=== PATIENT | male | born 1990 | race Caucasian/White ===

== ENCOUNTER 2018-01-12 16:19 | Emergency (ER) | payer OTHER ==
[2018-01-12 16:39] VITALS: BP 139/71; PULSE 97; RESP 18; TEMP 98.7
--- NOTE | 2018-01-12 16:46 | ED ---
Lower Extremity Injury HPI - General Chief Complaint: Extremity Injury, Lower Stated Complaint: lt foot pain Time Seen by Provider: 01/12/18 16:33 Source: patient, RN notes reviewed Mode of arrival: ambulatory Limitations: no limitations - History of Present Illness Initial Comments: This is a 27-year-old male presents emergency Department chief complaint of left foot issues. 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 Patient states his surgery was over 12 years ago by a physician in [place]. Patient states recently he's noticed some swelling and opening where he believes one of the screws are. Patient states it is sensitive when he pressed over the area she's had no fever no chills - Related Data Home Medications Medication Instructions Recorded Confirmed No Known Home Medications [No 02/19/16 01/12/18 Known Home Medications] Allergies Allergy/AdvReac Type Severity Reaction Status Date / Time No Known Allergies Allergy Unverified 01/12/18 17:08 Review of Systems ROS Statement: Those systems with pertinent positive or pertinent negative responses have been documented in the HPI. ROS Other: All systems not noted in ROS Statement are negative. Past Medical History Past Medical History: No Reported History History of Any Multi-Drug Resistant Organisms: None Reported Past Surgical History: Orthopedic Surgery Additional Past Surgical History / Comment(s): feet surgery Past Psychological History: No Psychological Hx Reported Smoking Status: Current every day smoker Past Alcohol Use History: Occasional Past Drug Use History: None Reported General Exam Limitations: no limitations General appearance: alert, in no apparent distress Head exam: Present: atraumatic, normocephalic, normal inspection Respiratory exam: Present: normal lung sounds bilaterally. Absent: respiratory distress, wheezes, rales, rhonchi, stridor Cardiovascular Exam: Present: regular rate, normal rhythm, normal heart sounds. Absent: systolic murmur, diastolic murmur, rubs, gallop, clicks Extremities exam: Present: other (Left foot to old scars noted there is 0.5 cm circular region that has a scab noted over mild erythema mild tenderness with palpation the foot is neurovascularly intact) Skin exam: Present: warm, dry Course Vital Signs 01/12/18 16:37 Temperature 98.7 F Pulse Rate 97 Respiratory 18 Rate Blood Pressure 139/71 O2 Sat by Pulse 97 Oximetry Medical Decision Making - Medical Decision Making 27-year-old male presents from his for issues with his screw in his foot. X- ray shows fracture of his hardware. The screws tenting the skin. Patient will follow-up with orthopedics Dr. Burks for further evaluation. Disposition Clinical Impression: Fixation hardware in foot, Failed hardware, Foot pain, left Disposition: HOME SELF-CARE Condition: Stable Instructions: Arthralgia (ED) Additional Instructions: Please return to the Emergency Department if symptoms worsen or any other concerns. Is patient prescribed a controlled substance at d/c from ED?: No Referrals: None,Stated [Primary Care Provider] - 1-2 days Ander Burks MD [Medical Doctor] - 1-2 days
--- NOTE | 2018-01-12 16:58 | XR ---
EXAMINATION TYPE: XR foot complete LT DATE OF EXAM: 01/12/2018 COMPARISON: 03/21/2015 HISTORY: Foot pain TECHNIQUE: 3 views FINDINGS: There are plates and screws fusing the mid foot. There are 2 screws fixing osteotomy of the posterior calcaneus. I see no fracture nor dislocation. There are no erosions. There is a movement o f a medial screw that is now has head near the skin surface. There is fracture of also a second media l screw. IMPRESSION: Previous surgery. Fracture of one of the fusion screws. One screw is near the skin surfac e consistent with instability and movement. This is similar to old exam.
== END 2018-01-12 17:22 | disposition home or self-care (01) ==
LOC: EC 16:19
DX: T84.84XA Pain due to internal orthopedic prosthetic devices, implants and grafts, initial encounter (principal); M79.672 Pain in left foot; F17.200 Nicotine dependence, unspecified, uncomplicated
CPT/HCPCS: 99283

== ENCOUNTER 2019-01-23 09:19 | Emergency (ER) | payer OTHER ==
[2019-01-23 09:26] VITALS: BP 125/81; PULSE 83; RESP 18; TEMP 98.5
[2019-01-23] MEDS ORDERED: ACET/COD 300 MG/30 MG STARTER PACK 6 TAB BTL PO STA (10:06)
--- NOTE | 2019-01-23 10:06 | ED ---
ENT HPI - General Chief complaint: Dental/Oral Stated complaint: Dental Time Seen by Provider: 01/23/19 09:39 Source: patient, RN notes reviewed Mode of arrival: ambulatory Limitations: no limitations - History of Present Illness Initial comments: 28-year-old male presents emergency Department chief complaint of right lower dental pain. Patient states she's had increasing pain last couple days. No fevers or chills. Patient does report pain along his right jawline. Patient has not taken any medicines currently he did try some aspirin last night has NO KNOWN DRUG ALLERGIES. Has no current dentist. - Related Data Previous Rx's Medication Instructions Recorded Ibuprofen [Motrin] 600 mg PO Q8HR PRN #30 tab 01/23/19 Penicillin V Potassium [Pen Vee K] 500 mg PO QID #40 tablet 01/23/19 Allergies Allergy/AdvReac Type Severity Reaction Status Date / Time No Known Allergies Allergy Verified 01/23/19 09:39 Review of Systems ROS Statement: Those systems with pertinent positive or pertinent negative responses have been documented in the HPI. ROS Other: All systems not noted in ROS Statement are negative. Past Medical History Past Medical History: No Reported History History of Any Multi-Drug Resistant Organisms: None Reported Past Surgical History: Orthopedic Surgery Additional Past Surgical History / Comment(s): feet surgery Past Psychological History: No Psychological Hx Reported Smoking Status: Current every day smoker Past Alcohol Use History: Occasional Past Drug Use History: Marijuana General Exam Limitations: no limitations General appearance: alert, in no apparent distress Head exam: Present: atraumatic, normocephalic, normal inspection Eye exam: Present: normal appearance, PERRL, EOMI. Absent: scleral icterus, conjunctival injection, periorbital swelling ENT exam: Present: mucous membranes moist, TM's normal bilaterally, normal external ear exam, other (No trismus). Absent: normal oropharynx (Dental fracture, dental Neli right lower no 32) Neck exam: Present: normal inspection, full ROM. Absent: tenderness, meningismus, lymphadenopathy Respiratory exam: Present: normal lung sounds bilaterally. Absent: respiratory distress, wheezes, rales, rhonchi, stridor Cardiovascular Exam: Present: regular rate, normal rhythm, normal heart sounds. Absent: systolic murmur, diastolic murmur, rubs, gallop, clicks Course Vital Signs 01/23/19 09:24 Temperature 98.5 F Pulse Rate 83 Respiratory 18 Rate Blood Pressure 125/81 O2 Sat by Pulse 96 Oximetry Medical Decision Making - Medical Decision Making 28-year-old male presented for dental pain. Patient has noted dental fracture, no drainable abscess concern for underlying dental infection will be placed on Pen-Vee K, ibuprofen and given last Tylenol codeine starter pack. Disposition Clinical Impression: Impacted molar, Fracture of tooth, Dental caries Disposition: HOME SELF-CARE Condition: Stable Instructions (If sedation given, give patient instructions): Toothache (ED) Additional Instructions: Please return to the Emergency Department if symptoms worsen or any other concerns. Please follow up with the [facility]. [facility] [place] [address]. Phone number for new patients or [phone] for existing patients. Prescriptions: Ibuprofen [Motrin] 600 mg PO Q8HR PRN #30 tab PRN Reason: Pain Penicillin V Potassium [Pen Vee K] 500 mg PO QID #40 tablet Is patient prescribed a controlled substance at d/c from ED?: No Referrals: None,Stated [Primary Care Provider] - 1-2 days Time of Disposition: 10:06
== END 2019-01-23 10:21 | disposition home or self-care (01) ==
LOC: EC 09:19
DX: K02.9 Dental caries, unspecified (principal); K01.1 Impacted teeth; S02.5XXA Fracture of tooth (traumatic), initial encounter for closed fracture; F17.200 Nicotine dependence, unspecified, uncomplicated
CPT/HCPCS: 99282

== ENCOUNTER 2019-07-08 10:37 | Emergency (ER) | payer OTHER ==
[2019-07-08 10:46] VITALS: RESP 17
--- NOTE | 2019-07-08 11:14 | ED ---
Extremity Problem HPI - General Chief complaint: Extremity Problem,Nontraumatic Stated complaint: Wound on foot Time Seen by Provider: 07/08/19 10:51 Source: patient, RN notes reviewed, old records reviewed Mode of arrival: ambulatory Limitations: no limitations - History of Present Illness Initial comments: This patient's a pleasant 29-year-old male. 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 He had corrective surgery in 2004 and 2005 respectively. Patient reports that over the past 4 days after starting a new job read on his feet he's noticed some increased redness and pain over the mid left foot. He reports that he is noticed some erythema, drainage from where he believes that he has 2 screws from his corrective surgery. He feels that the screws are very close to the surface of the skin and her concern that they will pop out. Patient states that he has had no specific fevers or chills. He denies any other complaints at this time. - Related Data Previous Rx's Medication Instructions Recorded Ibuprofen [Motrin] 600 mg PO Q8HR PRN #30 tab 01/23/19 Penicillin V Potassium [Pen Vee K] 500 mg PO QID #40 tablet 01/23/19 Cephalexin [Keflex] 500 mg PO Q6H #40 cap 07/08/19 Sulfamethox-Tmp 800-160Mg [Bactrim 2 tab PO Q12HR #40 tab 07/08/19 DS 800-160 mg] Allergies Allergy/AdvReac Type Severity Reaction Status Date / Time No Known Allergies Allergy Verified 01/23/19 09:39 Review of Systems ROS Statement: Those systems with pertinent positive or pertinent negative responses have been documented in the HPI. ROS Other: All systems not noted in ROS Statement are negative. Past Medical History Past Medical History: No Reported History History of Any Multi-Drug Resistant Organisms: None Reported Past Surgical History: Orthopedic Surgery Additional Past Surgical History / Comment(s): feet surgery Past Psychological History: No Psychological Hx Reported Smoking Status: Current every day smoker Past Alcohol Use History: Occasional Past Drug Use History: Marijuana General Exam - General Exam Comments Initial Comments: 29-year-old male. Alert and oriented. Limitations: no limitations General appearance: alert, in no apparent distress Head exam: Present: atraumatic, normocephalic, normal inspection Eye exam: Present: normal appearance, PERRL, EOMI. Absent: scleral icterus, conjunctival injection, periorbital swelling ENT exam: Present: normal exam, mucous membranes moist Neck exam: Present: normal inspection. Absent: tenderness, meningismus, lymphadenopathy Respiratory exam: Present: normal lung sounds bilaterally. Absent: respiratory distress, wheezes, rales, rhonchi, stridor Cardiovascular Exam: Present: regular rate, normal rhythm, normal heart sounds. Absent: systolic murmur, diastolic murmur, rubs, gallop, clicks GI/Abdominal exam: Present: soft, normal bowel sounds. Absent: distended, tenderness, guarding, rebound, rigid Extremities exam: Present: normal inspection, full ROM, normal capillary refill. Absent: tenderness, pedal edema, joint swelling, calf tenderness Left Knee exam: Present: normal inspection, full ROM Lower Leg exam: Present: normal inspection, full ROM Ankle exam: Present: normal inspection, full ROM Foot/Toe exam: Present: tenderness, swelling (Patient has had a swelling, erythema over the left mid foot. There is to areas which appear to be 1 cm blisters. They're firm, concern for hardware close to coming through the skin.), erythema. Absent: normal inspection Neurovascular tendon exam: Present: no vascular compromise Gait: observed and normal Back exam: Present: normal inspection Neurological exam: Present: alert, oriented X3, CN II-XII intact Psychiatric exam: Present: normal affect, normal mood Skin exam: Present: warm, dry, intact, normal color. Absent: rash Course Vital Signs 07/08/19 10:44 Temperature 97.9 F Pulse Rate 62 Respiratory 17 Rate Blood Pressure 125/60 O2 Sat by Pulse 98 Oximetry Medical Decision Making - Medical Decision Making Patient is a 29-year-old male with history of congenital heart abnormality, he had surgery 2004. Lopressor days after getting a new job is walking and having rubbing of his boot over the medial aspect of his foot. He is found to have erythematous and swelling over the midfoot. X-rays completed does show some worsening of the broken hardware within the place. There was some minor drainage and wound culture was completed. Patient was given 2 g of IV Kefzol. We discussed the concern for fracture hardware no open skin could lead to osteomyelitis. We discussed admission with the Patient. He states referred to follow up out patiently and try a course of oral antibiotics. Discussed that person Patient is to rest ice and elevate the foot and to limit any weightbearing activity. Given a note for work. Patient started Keflex and Bactrim. Discussed strict return parameters. Patient reports that he was previously. Follow-up with Dr. Burks limbus screws removed however was unable to due to lack of insurance. Discussed the importance of following up with Dr. Burks in the strict return parameters of the area of redness worsens or swelling or drainage worsens to return probably. - Lab Data Result diagrams: 07/08/19 11:40 07/08/19 11:40 Lab Results 07/08/19 07/08/19 07/08/19 Range/Units 11:40 11:40 11:40 WBC 5.9 (3.8-10.6) k/uL RBC 5.55 (4.30-5.90) m/uL Hgb 16.0 (13.0-17.5) gm/dL Hct 47.1 (39.0-53.0) % MCV 84.9 (80.0-100.0) fL MCH 28.9 (25.0-35.0) pg MCHC 34.0 (31.0-37.0) g/dL RDW 12.7 (11.5-15.5) % Plt Count 205 (150-450) k/uL Neutrophils % 61 % Lymphocytes % 27 % Monocytes % 7 % Eosinophils % 3 % Basophils % 0 % Neutrophils # 3.6 (1.3-7.7) k/uL Lymphocytes # 1.6 (1.0-4.8) k/uL Monocytes # 0.4 (0-1.0) k/uL Eosinophils # 0.2 (0-0.7) k/uL Basophils # 0.0 (0-0.2) k/uL Sodium 141 (137-145) mmol/L Potassium 4.2 (3.5-5.1) mmol/L Chloride 110 H (98-107) mmol/L Carbon Dioxide 23 (22-30) mmol/L Anion Gap 8 mmol/L BUN 16 (9-20) mg/dL Creatinine 0.58 L (0.66-1.25) mg/dL Est GFR (CKD-EPI)AfAm >90 (>60 ml/min/1.73 sqM) Est GFR (CKD-EPI)NonAf >90 (>60 ml/min/1.73 sqM) Glucose 91 (74-99) mg/dL Plasma Lactic Acid Aiden 0.6 L (0.7-2.0) mmol/L Calcium 9.1 (8.4-10.2) mg/dL Total Bilirubin 1.0 (0.2-1.3) mg/dL AST 86 H (17-59) U/L ALT 76 H (21-72) U/L Alkaline Phosphatase 49 (38-126) U/L C-Reactive Protein <5.0 (<10.0) mg/L Total Protein 7.1 (6.3-8.2) g/dL Albumin 4.2 (3.5-5.0) g/dL - Radiology Data Radiology results: report reviewed Testes and medial section plate no longer putting the first cuneiform. Mild soft tissue swelling over the medial foot. No current sequelae of osteomyelitis. Disposition Clinical Impression: Cellulitis of foot, Fixation hardware in foot Disposition: HOME SELF-CARE Condition: Good Instructions (If sedation given, give patient instructions): Cellulitis (ED) Additional Instructions: Please use medication as discussed. Please follow up with orthopedic doctor if symptoms have not improved over the next two days. Please return to the emerge ncy room if your symptoms increase or worsen or for any other concerns. Advised to rest ice and elevate the foot. Prescriptions: Sulfamethox-Tmp 800-160Mg [Bactrim DS 800-160 mg] 2 tab PO Q12HR #40 tab Cephalexin [Keflex] 500 mg PO Q6H #40 cap Is patient prescribed a controlled substance at d/c from ED?: No Referrals: None,Stated [Primary Care Provider] - 1-2 days Neo Shin DO [Doctor of Osteopathic Medicine] - 1-2 days Time of Disposition: 13:23
[2019-07-08 11:58] LABS: Basophils % (A) 0 %; Eosinophils # (A) 0.2 k/uL (0-0.7); Eosinophils % (A) 3 %; HCT 47.1 % (39.0-53.0); Lymphocytes # (A) 1.6 k/uL (1.0-4.8); Lymphocytes % (A) 27 %; MCH 28.9 pg (25.0-35.0); MCV 84.9 fL (80.0-100.0); Monocytes # (A) 0.4 k/uL (0-1.0); Monocytes % (A) 7 %; Neutrophils # (A) 3.6 k/uL (1.3-7.7); Neutrophils % (A) 61 %; Platelet Count 205 k/uL (150-450); RBC 5.55 m/uL (4.30-5.90); RDW 12.7 % (11.5-15.5); WBC 5.9 k/uL (3.8-10.6)
[2019-07-08 12:12] LABS: ALT 76 U/L (21-72); AST 86 U/L (17-59); African American GFR (CKD) >90 (>60 ml/min/1.73 sqM); Albumin 4.2 g/dL (3.5-5.0); Alkaline Phosphatase 49 U/L (38-126); Anion Gap 8 mmol/L; Blood Urea Nitrogen 16 mg/dL (9-20); C Reactive Protein <5.0 mg/L (<10.0); Calcium 9.1 mg/dL (8.4-10.2); Carbon Dioxide 23 mmol/L (22-30); Chloride 110 mmol/L (98-107); Glucose 91 mg/dL (74-99); Non-African American GFR(CKD) >90 (>60 ml/min/1.73 sqM); Potassium 4.2 mmol/L (3.5-5.1); Sodium 141 mmol/L (137-145); Total Protein 7.1 g/dL (6.3-8.2)
--- NOTE | 2019-07-08 12:33 | XR ---
EXAMINATION TYPE: XR foot complete LT DATE OF EXAM: 07/08/2019 CLINICAL HISTORY: Foot infection medially TECHNIQUE: Frontal, lateral, and oblique images of the left foot are obtained. COMPARISON: 01/12/2018 FINDINGS: Arthrodesis of the midfoot with discontinuity of the medial fixation screw is seen on the p rior. No interval change. Medial midfoot soft tissue swelling is mild. No subcutaneous emphysema. Dif fuse osseous demineralization. Cortical thickening of the proximal fifth metatarsal is unchanged from the prior and may relate to remote injury or sequela of prior infection. Normal cortical erosion or periosteal reaction is seen. The medial fixation plate does not abut the first cuneiform. IMPRESSION: Diastases of the medial fixation plate no longer abutting the first cuneiform. Mild soft tissue swelling is seen over the medial midfoot. No current sequela of osteomyelitis.
[2019-07-08 13:46] VITALS: BP 128/81; PULSE 67; TEMP 98.2
== END 2019-07-08 13:31 | disposition home or self-care (01) ==
LOC: EC 10:37
DX: L03.116 Cellulitis of left lower limb (principal); F17.200 Nicotine dependence, unspecified, uncomplicated; Z87.76 Personal history of (corrected) congenital malformations of integument, limbs and musculoskeletal system; Z96.698 Presence of other orthopedic joint implants
CPT/HCPCS: 36415; 80053; 83605; 85025; 86140; 87040; 87070; 87205; 73630; 99284; 96365; J0690; 87077; 87186

== ENCOUNTER 2019-07-28 11:37 | Day surgery (SDC) | payer SELFPAY ==
[2019-07-25 12:44] VITALS: BMI 33.5
[~2019-07-28 11:37] MED LIST: DEXAMETHASONE SOD PHOSPHATE 10 MG/ML 1 ML VIAL IV ONE; LACTATED RINGERS 1,000 ML IV SCH; MIDAZOLAM 2 MG/2 ML VIAL IV PRN; ONDANSETRON 4 MG/2 ML VIAL IVP ONE; SCOPOLAMINE 1.5MG/72HR PATCH TRANSDERM ONE
[2019-07-28] MEDS ORDERED: LIDOCAINE 1% 20 ML VIAL (10MG/ML) FOR IV START INTRADERMA ONE (12:13)
[2019-07-28] MEDS ORDERED: fentaNYL (PF) 50 MCG/ML 2 ML AMP ONE (13:12)
[2019-07-28] MEDS ORDERED: PROPOFOL 10 MG/ML 20 ML VIAL IV ONE (13:12)
[2019-07-28] MEDS ORDERED: MIDAZOLAM 2 MG/2 ML VIAL ONE (13:12)
[2019-07-28] MEDS ORDERED: LIDOCAINE 1% INJ 10MG/ML (20 ML MDV) ONE (13:12)
--- NOTE | 2019-07-28 13:51 | P.OP ---
Date of Procedure: 07/28/19 Preoperative Diagnosis: 1. 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 Prior foot surgery by an outside provider for congenital foot deformity Postoperative Diagnosis: Same Procedure(s) Performed: 1. Hardware removal, deep left foot 2. Irrigation and debridement, left foot (excisional debridement left foot using a scalpel of nonviable skin and subcutaneous tissue down to bone) Anesthesia: [facility] [place] Surgeon: Ander Burks Surgeon Assistant #1: Carisa Bowens Estimated Blood Loss (ml): 5 IV fluids (ml): 500 Pathology: other (Deep cultures) Condition: stable Disposition: PACU Indications for Procedure: The patient is very pleasant 29-year-old male with a history of congenital foot deformity that previously underwent surgery by an outside provider. He developed painful prominence over the medial foot and the screw had backed out. He's had several bouts of open draining wounds and superficial infection. He came to my office discuss treatment. I recommended removing the prominent hardware and taking deep cultures. We discussed the potential risks and complications including continued or worsened infection and need for further treatment. The patient smokes medicinal marijuana and understands the role that this has and wound healing and eradication of infection. Operative Findings: No evidence of deep purulence or infection Description of Procedure: The patient was identified and proper folding and the correct left foot was marked with my initials. I reviewed the consent form with the patient. All his questions were answered. The patient was then brought back to the operating room. He was positioned on the OR table where an anesthetic was provided by the anesthesia team. A tourniquet was applied to the proximal aspect of the left leg. The left leg was then prepped and draped in the standard sterile fashion. Prior to starting surgery timeout was performed identifying the correct patient, operative extremity, and procedure. The patient's leg was then elevated, exsanguinated with an Esmarch bandage, and the tourniquet was inflated to 250 mmHg. I began by outlining the distal half of the incision over the medial column of the foot. Skin incision was made with a scalpel and dissection was carried down carefully through the subcutaneous scar tissue. The prominent screw was immediately identified and removed. The claw plate was then dissected free and removed. The proximal screw was broken. There was minimal purulence but the tissue underneath the plate was swabbed and sent for culture. I sharply debrided nonviable skin and subcutaneous tissue down to the level of bone using a scalpel. The wound was then thoroughly irrigated using sterile saline and a bulb syringe. Final fluoroscopic images were taken documenting removal of the prominent hardware. The deep layer was closed with interrupted 2-0 Prolene. The superficial subcutaneous layer was closed with interrupted 3-0 Monocryl. The skin was closed using 3-0 nylon horizontal mattress stitches. A sterile dressing was applied followed by postoperative shoe. The tourniquet was let down. The patient was awoken from his anesthetic, transferred to a gurney, and brought to recovery haven't helped procedure well. Plan: The patient will be discharged home as an outpatient. He'll be given oral antibiotics and pain medication. We will closely follow the cultures and if they show any growth will refer him to infectious disease. He will need follow- up in 1 week for wound check.
[2019-07-28] MEDS: HYDROmorphone 0.5 MG/0.5 ML SYRINGE IVP PRN ×4 (14:10→14:27)
[2019-07-28 14:17] VITALS: TEMP 97.9
--- NOTE | 2019-07-28 14:28 | FL ---
Fluoroscopy HISTORY: Hardware removal 1 seconds fluoroscopy time supplied to the referring clinician. 1 intraoperative C-arm images docume nt the procedure. See dictated report from orthopedic surgery.
[2019-07-28] MEDS ORDERED: LACTATED RINGERS 1,000 ML IV ONE (14:43)
[2019-07-28 15:11] VITALS: RESP 18
[2019-07-28 15:33] VITALS: BP 127/79; PULSE 78
== END 2019-07-28 15:49 | disposition home or self-care (01) ==
LOC: OR 11:37
PROVIDERS: ATTEND Orthopaedic Surgery
DX: T84.84XA Pain due to internal orthopedic prosthetic devices, implants and grafts, initial encounter (principal); T84.69XA Infection and inflammatory reaction due to internal fixation device of other site, initial encounter; F17.200 Nicotine dependence, unspecified, uncomplicated; T84.218A Breakdown (mechanical) of internal fixation device of other bones, initial encounter; Z98.890 Other specified postprocedural states; Y83.1 Surgical operation with implant of artificial internal device as the cause of abnormal reaction of the patient, or of later complication, without mention of misadventure at the time of the procedure
CPT/HCPCS: 87070; 87075; 87205

== ENCOUNTER 2023-05-13 12:54 | Emergency (ER) | payer BC ==
[2023-05-13 14:01] VITALS: RESP 18
[2023-05-13] MEDS ORDERED: KETOROLAC 15 MG/ML 1 ML VIAL IM STA (14:03)
--- NOTE | 2023-05-13 14:03 | ED ---
Back Pain HPI - General Chief Complaint: Back Pain/Injury Stated Complaint: Back Pain Source: patient - History of Present Illness Initial Comments: patient is a 32-year-old gentleman is otherwise healthy presents emergency room with complaints of right lower back pain that started about 5 days ago. States that it started after he he bent over to pickle sorter her remote control. He felt a sudden onset of sharp pain. The pain now is worse with positions. 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 Patient denies any urinary symptoms. Denies any dysuria, hematuria, urinary frequency, fevers, suicidal anesthesia, loss of bowel or bladder control. He is able to anyone with steady gait and denies any weakness. Patient's been taking [id number] ibuprofen without improvement. - Related Data Home Medications Medication Instructions Recorded Confirmed Ibuprofen [Motrin Ib] 600 mg PO Q8H PRN 05/13/23 05/13/23 Previous Rx's Medication Instructions Recorded Cyclobenzaprine [Flexeril] 10 mg PO TID PRN #15 tab 05/13/23 Ketorolac [Toradol] 10 mg PO Q8HR #15 tab 05/13/23 Lidocaine 5% Patch [Lidoderm] 1 each TP DAILY 10 Days #10 patch 05/13/23 Allergies Allergy/AdvReac Type Severity Reaction Status Date / Time No Known Allergies Allergy Verified 05/13/23 15:26 Review of Systems ROS Statement: Those systems with pertinent positive or pertinent negative responses have been documented in the HPI. ROS Other: All systems not noted in ROS Statement are negative. Past Medical History Past Medical History: No Reported History Additional Past Medical History / Comment(s): recent infection in left foot from old hardware History of Any Multi-Drug Resistant Organisms: MRSA Date of last positivie culture/infection: 07/08/19 MDRO Source:: Left Foot Past Surgical History: Orthopedic Surgery Additional Past Surgical History / Comment(s): pedro foot surgery as a teen Past Anesthesia/Blood Transfusion Reactions: No Reported Reaction Past Psychological History: No Psychological Hx Reported Smoking Status: Never smoker Past Alcohol Use History: None Reported, Rare Past Drug Use History: None Reported, Marijuana - Past Family History Mother Family Medical History: No Reported History General Exam Limitations: no limitations General appearance: alert, in no apparent distress Head exam: Present: atraumatic Eye exam: Present: normal appearance ENT exam: Present: normal exam Neck exam: Present: normal inspection Respiratory exam: Present: normal lung sounds bilaterally Cardiovascular Exam: Present: regular rate Extremities exam: Present: normal inspection, full ROM Back exam: Present: other (pain with palpation along the right lumbar paraspinal muscle and over the right SI joint. No vertebral point tenderness. Pain with right straight leg test but neurologically intact. EHL intact bilaterally. Able to ambulate with a steady gait.) Neurological exam: Present: alert, oriented X3, CN II-XII intact Psychiatric exam: Present: normal affect, normal mood Skin exam: Present: warm, dry, other (no rash or vesicular lesions) Course Vital Signs 05/13/23 13:40 Temperature 98.6 F Pulse Rate 82 Respiratory 18 Rate Blood Pressure 133/74 O2 Sat by Pulse 98 Oximetry - Reevaluation(s) Reevaluation #1: 05/13/23 15:55 Patient is given Toradol IM in the emergency room as he was driving. He is neurologically intact. He is able to ambulate with a steady gait. the patient dneies any saddle anesthesia, loss of bowel or bladder control, weakness in the LE, or inability to ambulate, therefore no MRI was ordered at today's visit. i discussed imaging results which are negative for any acute changes. I discussed treatment plan including muscle relaxer and anti-inflammatories, heat ice and stretching. He was given stretches to help with the vaccine and SI dysfunction. He understands signs return to the emergency room including but not limited to any weakness, saddle anesthesia, loss of bowel or bladder control or new concerning symptoms. I discussed orthopedic follow-up as well. Medical Decision Making - Medical Decision Making Was pt. sent in by a medical professional or institution (, PA, FORENSIC MANAGER, urgent care, hospital, or half-way...) When possible be specific @ -[No] Did you speak to anyone other than the patient for history (EMS, parent, family, police, friend...)? What history was obtained from this source @ -[No] Did you review nursing and triage notes (agree or disagree)? Why? @ -[I reviewed and agree with nursing and triage notes] Were old charts reviewed (outside hosp., previous admission, EMS record, old EKG, old radiological studies, urgent care reports/EKG's, half-way records)? Report findings @ -[No old charts were reviewed] Differential Diagnosis (chest pain, altered mental status, abdominal pain women, abdominal pain men, vaginal bleeding, weakness, fever, dyspnea, syncope, headache, dizziness, GI bleed, back pain, seizure, CVA, palpatations, mental health, musculoskeletal)? @ -Back strain muscle strain, sciatica, SI joint dysfunction EKG interpreted by me (3pts min.). @ -[As above] X-rays interpreted by me (1pt min.). @ -X-rays negative for any fracture, obvious deformity or other acute changes. Radiology report is pending for confirmation of acute changes CT interpreted by me (1pt min.). @ -[None done] U/S interpreted by me (1pt. min.). @ -[None done] What testing was considered but not performed or refused? (CT, X-rays, U/S, labs)? Why? @ -[None] What meds were considered but not given or refused? Why? @ -[None] Did you discuss the management of the patient with other professionals (professionals i.e. , PA, FORENSIC MANAGER, lab, RT, psych nurse, psychiatric social worker, oncology coordinator, teacher, business enterprise officer, case packer and sealer)? Give summary @ -Discussed patient's symptoms are And management with attending ED physician Dr. Shirley today. Was smoking cessation discussed for >3mins.? @ -[No] Was critical care preformed (if so, how long)? @ -[No] Were there social determinants of health that impacted care today? How? (Homelessness, low income, unemployed, alcoholism, drug addiction, transportation, low edu. Level, literacy, decrease access to med. care, senior care, rehab)? @ -[No] Was there de-escalation of care discussed even if they declined (Discuss DNR or withdrawal of care, Hospice)? DNR status @ -[No] What co-morbidities impacted this encounter? (DM, HTN, Smoking, COPD, CAD, Cancer, CVA, ARF, Chemo, Hep., AIDS, mental health diagnosis, sleep apnea, morbid obesity)? @ -[None] Was patient admitted / discharged? Hospital course, mention meds given and route, prescriptions, significant lab abnormalities, going to OR and other pertinent info. @ -Patient is well appearing in the emergency room. He is neurologically intact. He denies any saddle anesthesia or loss of bowel or bladder control or weakness of the legs therefore no MRI was ordered at today's visit. The x-rays are negative for any acute changes and patient is stable to follow up as an outpatient with publishing specialist as needed. I will write anti- inflammatories for pain and inflammation as well as a muscle relaxer. He may take this as an outpatient. He understands he is not to drive or work while taking a muscle relaxer. He does understand signs to return to the emergency room including the above neurological symptoms. We discussed following up with publishing specialist for further management of the pain, possible outpatient MRI and physical therapy. Undiagnosed new problem with uncertain prognosis? @ -[No] Drug Therapy requiring intensive monitoring for toxicity (Heparin, Nitro, Insulin, Cardizem)? @ -[No] Were any procedures done? @ -[No] Diagnosis/symptom? @ -Back pain, muscle strain, SI dysfunction Acute, or Chronic, or Acute on Chronic? @ -Acute Uncomplicated (without systemic symptoms) or Complicated (systemic symptoms)? @ -Uncomplicated Side effects of treatment? @ -[No] Exacerbation, Progression, or Severe Exacerbation? @ -[No] Poses a threat to life or bodily function? How? (Chest pain, [place], [place], pneumonia, PE, COPD, DKA, ARF, appy, cholecystitis, CVA, Diverticulitis, Homicidal, Suicidal, threat to staff... and all critical care pts) @ -[No] - Radiology Data Radiology results: report reviewed, image reviewed Disposition Clinical Impression: SI (sacroiliac) joint dysfunction, Back strain, Back pain Disposition: HOME SELF-CARE Condition: Good Instructions (If sedation given, give patient instructions): Acute Low Back Pain (ED), Sacroiliitis (ED), Lower Back Exercises (ED), Back Pain (ED), Low Back Strain (ED) Is patient prescribed a controlled substance at d/c from ED?: No When asked, does pt state using other controlled substances?: No If prescribed controlled substance>3 days was MAPS reviewed?: No Referrals: None,Stated [Primary Care Provider] - 1-2 days Chris Price DO [Doctor of Osteopathic Medicine] - 1-2 days (FOLLOW UP WITH [facility] FOR CONTINUED PAIN Return for any loss of bowel or bladder control weakness in the legs, inability to ambulate or new concerning symptoms. do not work or drive while taking muscle relaxer ) Time of Disposition: 16:00
--- NOTE | 2023-05-13 14:40 | XR ---
EXAMINATION TYPE: XR lumbar spine 2 or 3V DATE OF EXAM: 05/13/2023 CLINICAL HISTORY: pain TECHNIQUE: Three views of the lumbar spine are submitted. COMPARISON: None. FINDINGS: There are 5 lumbar type vertebral bodies identified. The lumbar spine shows satisfactory alignment w ithout evidence of acute fracture or dislocation. Vertebral body heights are within normal limits. Degenerative disc space narrowing L1-2. The overlying soft tissue appears unremarkable. IMPRESSION: No acute fracture or dislocation is seen in the lumbar spine. ICD 10 NO FRACTURE, INITIAL EVALUATION
[2023-05-13 16:35] VITALS: BP 135/77; PULSE 76; TEMP 98.4
== END 2023-05-13 16:25 | disposition home or self-care (01) ==
LOC: EC 12:54
DX: S39.012A Strain of muscle, fascia and tendon of lower back, initial encounter (principal); M46.1 Sacroiliitis, not elsewhere classified; F12.90 Cannabis use, unspecified, uncomplicated; X50.0XXA Overexertion from strenuous movement or load, initial encounter
CPT/HCPCS: 96372 ×2; 99283 ×2; 72100; J1885

== ENCOUNTER → 2023-06-30 | Outpatient (CLI) | payer BC ==
--- NOTE | 2023-07-01 07:14 | MR ---
EXAMINATION TYPE: MR lumbar spine wo con DATE OF EXAM: 06/30/2023 5:30 PM CLINICAL INDICATION:Male, 33 years old with history of M54.50 BACK PAIN, Low back pain COMPARISON: Radiograph 06/10/2023 TECHNIQUE: Multi planar, multi sequence imaging was performed utilizing: T1-weighted, T2-weighted, a nd turbo inversion recovery imaging of the lumbar spine. IV Contrast: (None if empty) FINDINGS: Alignment: The lumbar vertebral bodies have preserved heights and alignment. Cord: The conus medullaris and the distal spinal cord appear unremarkable with regards to their signa l intensity and morphology. Bones/Discs: Mild degeneration changes throughout the spine with osteophyte formation and facet joint arthropathy. Schmorl's node at the T11 inferior and T12 superior endplates. Mild disc desiccation mo st pronounced at L4-L5 and L5-S1. T12-L1: No evidence of significant spinal canal stenosis or neural foraminal stenosis. L1-L2: No evidence of significant spinal canal stenosis or neural foraminal stenosis. L2-L3: No evidence of significant spinal canal stenosis or neural foraminal stenosis. L3-L4: No evidence of significant spinal canal stenosis or neural foraminal stenosis. L4-L5: No evidence of significant spinal canal stenosis or neural foraminal stenosis. L5-S1: The disc is rounded posterior morphology without significant spinal canal stenosis. Facet join t arthropathy with mild bilateral neural foraminal stenosis. No significant spinal canal or neural foraminal stenosis in the remainder of the visualized levels. Other findings: None. IMPRESSION: 1. No definitive evidence of disc herniation or significant spinal canal stenosis. 2. Minimal disc degeneration with associated osteoarthritic changes.
== END | disposition home or self-care (01) ==
LOC: RADMRIMAIN 16:31
PROVIDERS: ATTEND Orthopaedic Surgery
DX: M51.36 Other intervertebral disc degeneration, lumbar region (principal); M47.816 Spondylosis without myelopathy or radiculopathy, lumbar region
CPT/HCPCS: 72148